=== PATIENT | female | born 1940 | race Caucasian/White ===

== ENCOUNTER → 2017-07-31 | Outpatient (CLI) | payer MEDICARE, OTHER ==
--- NOTE | 2017-07-31 18:25 | US ---
EXAMINATION TYPE: US venous doppler duplex LE LT DATE OF EXAM: 07/31/2017 5:40 PM COMPARISON: NONE CLINICAL HISTORY: Pian in Lower Left Limb [id number]. Left leg pain. Edema left leg SIDE PERFORMED: left TECHNIQUE: The lower extremity deep venous system is examined utilizing real time linear array sonog nadeen with graded compression, doppler sonography and color-flow sonography. VESSELS IMAGED: External Iliac Vein (EIV) Common Femoral Vein Deep Femoral Vein Greater Saphenous Vein * Femoral Vein Popliteal Vein Small Saphenous Vein * Proximal Calf Veins (* superficial vessels) Left Leg: No evidence of DVT IMPRESSION: Negative exam. No evidence of deep venous thrombosis in the left leg.
== END | disposition home or self-care (01) ==
LOC: RADUSMAIN 17:10
PROVIDERS: ATTEND Physician Assistant
DX: M79.605 Pain in left leg (principal)

== ENCOUNTER → 2023-03-01 | Outpatient (CLI) | payer MEDICARE, OTHER ==
--- NOTE | 2023-03-01 18:14 | US ---
EXAMINATION TYPE: US thyroid st tissue head/neck DATE OF EXAM: 03/01/2023 COMPARISON: NONE CLINICAL INDICATION: Female, 82 years old with history of E04.1 NONTOXIC SINGLE THYROID NODULE; Patie nt states having a thyroid nodule. Not on thyroid meds. 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 0.8 X 0.4 x 0.4 cm, mid mid, solid or almost completely solid, heterogeneous hyperechoic TR 3 no dule, which is wider than tall, with lobulated or irregular margins, without echogenic foci. Prior size: No prior 2. 0.6 X 0.5 x 0.4 cm, mid medial, solid or almost completely solid, hypoechoic TR 4 nodule, which is wider than tall, with smooth margins, without echogenic foci. Prior size: No prior 3. 0.6 X 0.5 x 0.5 cm, lower mid, mixed cystic and solid, hypoechoic TR 4 nodule, which is wider th an tall, with smooth margins, without echogenic foci. Prior size: No prior LEFT: # of nodules measured on left: 1 1. 0.5 X 0.4 x 0.3 cm, upper mid, mixed cystic and solid, hypoechoic TR 4 nodule, which is wider th an tall, with smooth margins, without echogenic foci. Prior size: No prior ISTHMUS: # of nodules measured in the isthmus: 0 Bilateral neck scanned, no evidence of lymphadenopathy. IMPRESSION: Correlate for multinodular goiter. Scattered TR4 nodules measuring up to 6 mm and a TR3 nodule on the right measuring up to 8 mm. 2017 ACR TI-RADS LEVEL: TR-RADS 4 - Moderately Suspicious: Follow if > 1 cm, FNA if > 1.5 cm *Highest TI-RADS level nodule reported
== END | disposition home or self-care (01) ==
LOC: RADUSWWP 14:18
PROVIDERS: ATTEND Family Medicine
DX: E04.2 Nontoxic multinodular goiter (principal)
CPT/HCPCS: 76536

== ENCOUNTER → 2023-08-23 | Outpatient (CLI) | payer MEDICARE ==
--- NOTE | 2023-08-23 15:25 | US ---
EXAMINATION TYPE: US thyroid st tissue head/neck DATE OF EXAM: 08/23/2023 COMPARISON: 03/01/2023 CLINICAL INDICATION: Female, 82 years old with history of E04.1 NONTOX SINGLE THY NOD; thy nodule GLAND SIZE: Right Lobe: 5.1 x 1.9 x 1.5 cm Overall Parenchyma: heterogeneous Left Lobe: 4.5 x 1.5 x 1.8 cm Overall Parenchyma: heterogeneous Isthmus Thickness: 0.4 cm NODULES RIGHT: # of nodules measured on right: Multiple subcentimeter measured largest 1. 0.8 X 0.6 x 0.7 cm, mid , Prior size: 0.8 x 0.4 x 0.4 cm TIRADS Score: 2 TIRADS Category 2: Composition: Mixed cystic and solid (1 point). Echogenicity: Hyperechoic or isoechoic (1 point). Shape: Wider than tall (0 points). Margin: Smooth (0 points). Echogenic foci: None or large comet-tail artifacts (0 points) Recommendation: No FNA LEFT: # of nodules measured on left: Subcentimeter nodules seen. ISTHMUS: # of nodules measured in the isthmus: 0 Bilateral neck scanned, no evidence of lymphadenopathy. IMPRESSION: No suspicious thyroid nodules.
== END | disposition home or self-care (01) ==
LOC: RADUSWWP 13:23
PROVIDERS: ATTEND Family Medicine
DX: E04.1 Nontoxic single thyroid nodule (principal)
CPT/HCPCS: 76536